=== PATIENT | male | born 1955 | race Caucasian/White ===

== ENCOUNTER → 2019-02-18 | Outpatient (CLI) | payer BC | LOC: ZCOL.LAB 17:06 | DX: Z01.812 Encounter for preprocedural laboratory examination (principal); Z86.14 Personal history of Methicillin resistant Staphylococcus aureus infection ==

== ENCOUNTER 2019-04-15 15:57 | Inpatient (IN) | payer BC ==
[~2019-04-15] VITALS: Ht 177.8 cm; Wt 123.0 kg
[2019-05-22] VITALS (11 sets, daily range): BP systolic 121–153; BP diastolic 63–87; PULSE 45–85; TEMP 97–98.9
[2019-05-22] MEDS ORDERED: VASOTEC20 MG PO (06:02)
[2019-05-22] MEDS ORDERED: FOLIC ACID 40400 MCG PO (06:03)
[2019-05-22] MEDS ORDERED: VITAMIN C500 MG PO (06:03)
[2019-05-22] MEDS ORDERED: VENTOLIN0.09 MG IH (06:04)
[2019-05-22] MEDS ORDERED: VITAMIN D31000 I1 PO (06:04)
[2019-05-22] MEDS ORDERED: QVAR REDIHALE10.6 G1 IH (06:05)
[2019-05-22] MEDS ORDERED: FLOMAX 0.40.4 MG/CAP PO (06:05)
[2019-05-22] MEDS ORDERED: LIPITOR20 MG PO (06:06)
[2019-05-22] MEDS ORDERED: CARDIZEM CD 24240 MG PO (06:07)
[2019-05-22] MEDS ORDERED: TOPROL XL 50MG50 MG PO (06:08)
[2019-05-22] MEDS ORDERED: MAG64 110 MG-181 ECT PO (06:08)
--- NOTE | 2019-05-22 07:28 | NUR ---
PT ADMITTED TO ROOM 329 PER WHEEL CHAIR @ 0530, ASSESSMENTS COMPLETE, PRE OP MEDS GIVEN ORDERED. MARIA EUGENIA FERNANDO ART LIBRARIAN IN TO SEE PT AND CHECK OP SITE. IV 20G TO LEFT HAND WITH FLUIDS ORDERED. PT RESTING IN BED AT THIS TIME WAITING FOR SURGERY.
--- NOTE | 2019-05-22 12:11 | NUR ---
PT TO ROOM 329 PER BED WITH REPORT FROM MIHCELE EAGLE PACU @ 1200. PT IS A/O X3 BUT DROWSEY AROUSES TO VERBAL. PT ON O2 @4L PNC WENT TO GET CPAP, RT IN TO PLACE CONTINOUS PULSE OXIMITER. SCDS PLACED BILATERALLY. [place] TO RIGHT KNEE OVER OCCLUSIVE CATALINO WRAP. PT DRIFTING IN AND OUT. IV TO PUMP.
--- NOTE | 2019-05-22 12:23 | NUR ---
CPAP IN ROOM. CALLED RT FOR SET UP. CURRENTLY O2 SATS MAINTAINING @MID 90S ON 4 L.
--- NOTE | 2019-05-22 12:37 | NUR ---
RT PLACING HOME CPAP PER HOME SETTINGS. CONTINUOUS PULSE OXCIMETRY IN PLACE.
--- NOTE | 2019-05-22 16:24 | NUR ---
SW met with patient and to discuss discharge planning. Patient lives independently at home with his in [place]. Patient's PCP is Dr Molina and he obtains prescriptions from [facility] in [place]. Patient has a walker for after discharge and no other DME is used or needed. Patient reports he will do out patient PT in [place] and his first appointment is on Sunday 05/27. Patient does not have any advanced directives and is not interested in completing any at this time. CHANDLER does not anticipate any discharge needs.
--- NOTE | 2019-05-22 16:51 | NUR ---
PT VOIDED 350 CONCENTRATED YELLOW URINE. ENCOURAGED PO INTAKE.
--- NOTE | 2019-05-22 20:00 | NUR ---
Report received, assumed care for shift superintendent. Assessment complete. Denies pain. Rating pain 2/10 on pain scale. Denies need for intervention. C/O nausea but wants to ry to eat before taking medication. Dressing to left knee-bulky white with david-C/D/I. Cryocuff filled with ice/water. IV to left hand flushes without difficulty. SCDs and TEDs bilat. Voiding without difficulty. Plan of care discussed for pain management and ambulation. Verbalizes understanding. Call light in reach. Bed in low position/wheels locked. Will monitor.
--- NOTE | 2019-05-22 21:40 | NUR ---
Up for first time since surgery. Sat on side of bed without issues. Stood with stand by assist/gait belt/walker. Walked approx 100 feet with standby assist. Tolerated well. Tramadol 100mg given PO for pain. Denies needs. Bed in low position, wheels locked, call light in reach. Will monitor.
--- NOTE | 2019-05-23 01:00 | NUR ---
Has rested off and on this shift. Currently denying pain. Cryocuff with fresh ice/water. Denies nausea. Voiding without difficulty. Denies needs. Call light in reach, bed in low position and wheels locked.
--- NOTE | 2019-05-23 04:00 | NUR ---
Resting in bed-denies pain and nausea. Cryocuff with fresh ice/water. Denies needs. Call light in reach. Bed in low position/wheels locked. Will monitor.
[2019-05-23 04:18] VITALS: BP 152/79; PULSE 57; TEMP 98.1
[2019-05-23 07:09] LABS: HEMOGLOBIN 11.7 g/dl (13.5-18.0)
[2019-05-23 07:11] LABS: HEMATOCRIT 34.5 % (42.0-52.0)
[2019-05-23 07:56] VITALS: BP 168/87; PULSE 64; TEMP 98.1
--- NOTE | 2019-05-23 09:08 | NUR ---
PT EATING AND DRINKING WITH NO N/V. PAIN WELL CONTROLLED WITH PO PAIN MEDS. USED CPAP OVER NOC WITH GOOD RESULTS. DRESSING TO LEFT KNEE CDI.
[2019-05-23 12:00] VITALS: BP 136/64; PULSE 54; TEMP 98.1
[2019-05-23 16:59] VITALS: BP 117/53; BP 128/76; PULSE 59; TEMP 97.6; TEMP 98.9
--- NOTE | 2019-05-23 18:53 | NUR ---
report to Dena EAGLE.
[2019-05-23 20:00] VITALS: BP 147/69; PULSE 50; TEMP 98.5
--- NOTE | 2019-05-23 20:00 | NUR ---
Report received, assumed care for inspector and clipper. Assessment complete. VS stable. Rating pain 3/10 to Left knee/thigh described as constant ache. Denies need for medication intervention. Plan of care discussed for ambulation this shift as well as pain management. Denies nausea. Bulky white dressing/david to left knee C/D/I. Cryocuff-fresh ice/water added. Voiding without difficulty. SCDs to bilat lower extremities/LUCIANA to right lower extremity. Denies questions or concerns. Call light in reach. Bed in low position/wheels locked. Will monitor.
[2019-05-23] MEDS ORDERED: ASPI325T6 PO (21:15)
[2019-05-23] MEDS ORDERED: TYLENOL 500MG500 MG PO (21:16)
[2019-05-23] MEDS ORDERED: ROXICODONE 55 MG/TAB PO (21:16)
--- NOTE | 2019-05-23 22:00 | NUR ---
Ambulated in hallway with stand by assist/gait belt/walker for approx 150 feet. Tolerated well. Back to bed, cryocuff applied with fresh ice/water. Requesting pain medications rating pain 8/10 to left knee described as constant ache with some sharp intermittent pains. Roxicodone 10mg given per dr order. Will monitor effectiveness. Denies needs. States hes not ready for CPaP but will call when he is ready. Will monitor.
[2019-05-24] VITALS: BP 149/91; PULSE 52; TEMP 97.9
[2019-05-24 04:00] VITALS: BP 147/86; PULSE 50; TEMP 98.4
--- NOTE | 2019-05-24 06:45 | NUR ---
awake resting in bed, bedside shift report received from [facility] Fernandes
[2019-05-24 07:22] LABS: HEMOGLOBIN 10.8 g/dl (13.5-18.0)
[2019-05-24 07:32] LABS: HEMATOCRIT 31.2 % (42.0-52.0)
--- NOTE | 2019-05-24 07:40 | NUR ---
up and about in room independently, full assessment completed, see interventions for further info, c/o some pain and medicated with roxicodone 5mg, will monitor,
[2019-05-24 07:41] VITALS: BP 138/89; PULSE 60; TEMP 97.5
--- NOTE | 2019-05-24 08:29 | NUR ---
occupational therapy in and assisting him with taking a shower
--- NOTE | 2019-05-24 09:15 | NUR ---
ambulated out to modi with physical therapy for group exercises
--- NOTE | 2019-05-24 10:15 | NUR ---
ambulated back to room after therapy and resting in chair
--- NOTE | 2019-05-24 11:25 | NUR ---
here and he is ready for discharge, discharge instructions given to patient and his , verbalizes understanding, medicated with roxicodone 5mg for c/os pain 12/26 and in anticipation of riding home in the car
--- NOTE | 2019-05-24 11:40 | NUR ---
discharged per WC
== END 2019-05-24 11:40 | disposition home or self-care (01) | DRG 470 ==
LOC: JCC 04-30 07:30
PROVIDERS: Physician Assistant; ADMIT Orthopaedic Surgery
PROC: 0SRD0J9 Replacement of Left Knee Joint with Synthetic Substitute, Cemented, Open Approach (ICD-10-PCS; principal; 2019-05-22 09:45)
DX: M17.12 Unilateral primary osteoarthritis, left knee (principal)
CPT/HCPCS: A9284; C1713; C1776; J0690; J1100; J1170; J1885; J2250; J2274; J2405; J2704; J3010; J7120; J7121; L1830